=== PATIENT | female | born 1965 | race Two or more races ===

== ENCOUNTER 2017-10-23 23:41 | Emergency (ER) | payer OTHER ==
[~2017-10-23] VITALS: Ht 167.6 cm; Wt 68.0 kg
--- NOTE | 2017-10-24 00:11 | NUR ---
PT REMOVED C-SPINE COLLAR AND REFUSES TO REAPPLY. Addendum: 10/24/17 at 0043 by KARAN PT WAS EXPLAINED WHY WEARING C-SPINE COLLAR IS VERY IMPORTANT.
[2017-10-24] MEDS ORDERED: HYDROCODONE/APAP 5-325MG TABLET PO ONE (00:15)
[2017-10-24] MEDS ORDERED: HYDROCODONE/APAP 5-325MG TABLET ONE (00:27)
--- NOTE | 2017-10-24 00:35 | NUR ---
PT IN ROUTE TO CT
[2017-10-24] MEDS ORDERED: IBUPROFEN 800 MG TABLET PO ONE (01:45)
[2017-10-24] MEDS ORDERED: IBUPROFEN 800 MG TABLET ONE (01:49)
--- NOTE | 2017-10-24 01:50 | NUR ---
Patient discharged to home in stable conditon. Written and verbal after care instructions given. Patient verbalizes understanding of instructions. Patient reported reduced pain prior to discharge. Patient able to ambulate unassisted with steady gait. Patient left with all personal belongings.
[2017-10-24 02:17] VITALS: BP 148/96
== END 2017-10-24 01:50 | disposition home or self-care (01) ==
LOC: ER 23:42
DX: S13.4XXA Sprain of ligaments of cervical spine, initial encounter (principal); S33.5XXA Sprain of ligaments of lumbar spine, initial encounter; S09.90XA Unspecified injury of head, initial encounter; I10 Essential (primary) hypertension; K21.9 Gastro-esophageal reflux disease without esophagitis; Z90.49 Acquired absence of other specified parts of digestive tract; V43.52XA Car driver injured in collision with other type car in traffic accident, initial encounter; Y93.89 Activity, other specified; Y92.410 Unspecified street and highway as the place of occurrence of the external cause; Y99.8 Other external cause status
CPT/HCPCS: 70450; A4663